=== PATIENT | female | born 1970 | race Caucasian/White ===

== ENCOUNTER → 2016-10-07 | Outpatient (CLI) | payer OTHER ==
--- NOTE | 2016-10-07 09:46 | MM ---
Reason for exam: screening (asymptomatic). Baseline mammogram. Physical Findings: Nurse Summary:less than 1cm nodule in the right breast at 3 o'clock (nurse ran). MG Screening Mammo w CAD Bilateral CC and MLO view(s) were taken. The breast tissue is heterogeneously dense. This may lower the sensitivity of mammography. Nodule in the upper outer quadrant right breast. These results were verbally communicated with the patient and result sheet given to the patient on 10/07/16. ASSESSMENT: Incomplete: need additional imaging evaluation, BI-RAD 0 RECOMMENDATION: Ultrasound of the right breast. Manage patient on a clinical basis.
--- NOTE | 2016-10-07 09:50 | USB ---
Reason for exam: additional evaluation requested from abnormal screening. US Breast Workup Limited RT Right breast ultrasound demonstrates a 4 x 2 x 4mm oval, mixed lesion at 11 o'clock, a 5 x 4 x 4mm oval, cystic lesion at 1 o'clock and a 6 x 5 x 5mm oval, cystic lesion at 12 o'clock. These results were verbally communicated with the patient and result sheet given to the patient on 10/07/16. ASSESSMENT: Probably benign, BI-RAD 3 RECOMMENDATION: Ultrasound of the right breast in 6 months.
== END | disposition home or self-care (01) ==
LOC: RADMAMWWP 08:00
PROVIDERS: ATTEND Family Medicine
DX: Z12.31 Encounter for screening mammogram for malignant neoplasm of breast (principal); R92.8 Other abnormal and inconclusive findings on diagnostic imaging of breast
CPT/HCPCS: 76642; G0202

== ENCOUNTER → 2021-08-20 | Outpatient (CLI) | payer OTHER ==
--- NOTE | 2021-08-20 15:50 | US ---
EXAMINATION TYPE: US kidneys/renal and bladder DATE OF EXAM: 08/20/2021 COMPARISON: NONE CLINICAL HISTORY: N39.9 DISORDER OF URINARY SYSTEM. Recurrent UTI EXAM MEASUREMENTS: Right Kidney: 8.8 x 4.1 x3.9 cm Left Kidney: 9.7 x 4.6 x 4.2 cm Post Void Residual Volume: 3.2 mL Right Kidney: No hydronephrosis or masses seen Left Kidney: No hydronephrosis or masses seen Bladder: wnl Bilateral Jets seen: Yes Normal Post Void Residual: Yes There is no evidence for hydronephrosis at this point in time. No nephrolithiasis is seen. No jessica s are identified. The urinary bladder is satisfactorily distended. Bilateral ureteral jets are seen . IMPRESSION: Unremarkable study.
== END | disposition home or self-care (01) ==
LOC: RADUSWWP 15:02
PROVIDERS: ATTEND Urology
DX: N39.9 Disorder of urinary system, unspecified (principal); N39.0 Urinary tract infection, site not specified
CPT/HCPCS: 76770

== ENCOUNTER → 2023-07-12 | Outpatient (CLI) | payer OTHER ==
--- NOTE | 2023-07-12 13:23 | MM ---
Reason for Exam: Screening (asymptomatic). Last mammogram was performed 2 year(s) and 0 month(s) ago. Patient History: Menarche at age 15. First Full-Term at age 20. Postmenopausal. Paternal aunt had breast cancer. Risk Values: Lucita 5 year model risk: 0.9%. NCI Lifetime model risk: 7.0%. Prior Study Comparison: 10/07/2016 Bilateral Screening Mammogram, [facility]. 10/07/2016 Right Diagnostic Ultrasound, [facility]. 07/21/2021 Bilateral Screening Mammogram, Unknown. Tissue Density: There are scattered fibroglandular densities. Findings: Analyzed By CAD. There is no suspicious group of microcalcifications or new suspicious mass. Overall Assessment: Negative, BI-RAD 1 Management: Screening Mammogram of both breasts in [address] [facility] will attempt to contact patient to return for supplemental views and ultrasound if indicated. Patient should continue monthly self-breast exams. A clinical breast exam by your physician is recommended on an annual basis. This exam should not preclude additional follow-up of suspicious palpable abnormalities. Note on Lucita scores and lifetime risk: 1. A Lucita score greater than 3% is considered moderate risk. If this is the case, consider specialist referral to assess eligibility for a risk reducing agent. 2. If overall lifetime risk for the development of breast cancer is 20% or higher, the patient may qualify for future screening with alternating mammogram and breast MRI. Electronically signed and approved by: Juan Harley DO
== END | disposition home or self-care (01) ==
LOC: RADMAMWWP 09:34
PROVIDERS: ATTEND Family Medicine
DX: Z12.31 Encounter for screening mammogram for malignant neoplasm of breast (principal); Z78.0 Asymptomatic menopausal state; Z80.3 Family history of malignant neoplasm of breast
CPT/HCPCS: 77067

== ENCOUNTER → 2024-07-29 | Outpatient (CLI) | payer OTHER ==
--- NOTE | 2024-07-29 18:16 | MM ---
Reason for Exam: Screening (asymptomatic). Last mammogram was performed 1 year(s) and 1 month(s) ago. Patient History: Menarche at age 15. First Full-Term at age 20. Postmenopausal. Paternal aunt had breast cancer. Risk Values: Lucita 5 year model risk: 0.9%. NCI Lifetime model risk: 6.9%. Prior Study Comparison: 10/07/2016 Bilateral Screening Mammogram, [facility]. 07/21/2021 Bilateral Screening Mammogram, Unknown. 07/12/2023 Bilateral MG screening mammo w CAD, [facility]. Tissue Density: The breasts are heterogeneously dense, which may obscure small masses. Findings: Analyzed By CAD. There is no suspicious group of microcalcifications or new suspicious mass in either breast. Overall Assessment: Negative, BI-RAD 1 Management: Screening Mammogram of both breasts in 1 year. Patient should continue monthly self-breast exams. A clinical breast exam by your physician is recommended on an annual basis. This exam should not preclude additional follow-up of suspicious palpable abnormalities. Note on Lucita scores and lifetime risk: 1. A Lucita score greater than 3% is considered moderate risk. If this is the case, consider specialist referral to assess eligibility for a risk reducing agent. 2. If overall lifetime risk for the development of breast cancer is 20% or higher, the patient may qualify for future screening with alternating mammogram and breast MRI. [facility], , 07/29/2024 6:13 PM. Electronically signed and approved by: Hetal Snyder M.D. Radiologist
== END | disposition home or self-care (01) ==
LOC: RADMAMWWP 13:01
PROVIDERS: ATTEND Family Medicine
DX: Z12.31 Encounter for screening mammogram for malignant neoplasm of breast (principal); R92.333 Mammographic heterogeneous density, bilateral breasts; Z78.0 Asymptomatic menopausal state; Z80.3 Family history of malignant neoplasm of breast
CPT/HCPCS: 77063; 77067